=== PATIENT | male | born 1950 | race Caucasian/White ===

== ENCOUNTER 2018-05-07 15:45 | Inpatient (IN) | payer OTHER ==
--- NOTE | 2018-05-07 17:36 | HP ---
COWS - Scale Resting Pulse: 0= AL 80 or Below Sweatin= Chills/Flushing Restless Observation: 1= Difficult to Sit Still Pupil Size: 1= Pupils >than Normal Bone or Joint Aches: 2= Severe Diffuse Aches Runny Nose/ Eye Tearin= Runny Nose/Eyes GI Upset > 30mins: 2= Nausea/Diarrhea Tremor Observation: 1= Tremor [place], Not Seen Yawning Observation: 1= 1-2x During Session Anxiety or Irritability: 2=Irritable/Anxious Goose Flesh Skin: 0=Smooth Skin COWS Score: 13 CIWA Score - Admission Criteria OASAS Guidelines: Admission for Medically Managed Detox: Requires at least one of the followin. CIWA greater than 12 2. Seizures within the past 24 hours 3. Delirium tremens within the past 24 hours 4. Hallucinations within the past 24 hours 5. Acute intervention needed for co occurring medical disorder 6. Acute intervention needed for co occurring psychiatric disorder 7. Severe withdrawal that cannot be handled at a lower level of care (continued vomiting, continued diarrhea, abnormal vital signs) requiring intravenous medication and/or fluids 8. Admission ROS [facility] Chief Complaint: Withdrawal symptoms Allergies/Adverse Reactions: Allergies Allergy/AdvReac Type Severity Reaction Status Date / Time No Known Allergies Allergy Verified 05/07/18 17:31 History of Present Illness: 67 y.o. man is here seeking detox services for Vicodin dependence. He reports he has been prescribed Vicodin intermittently for the last 18 year. He reports he started abusing his medication and taking it more frequently then prescribed. He was last prescribed 90 tablets of Vicodin on 04/17/2018 and reports he has no more. Pt. provided a letter from his pain management doctor stating the client's pain will be managed with non-opioids upon his completion of detox. Exam Limitations: No Limitations - Ebola screening Have you traveled outside of the country in the last 21 days: No Have you had contact with anyone from an Ebola affected area: No Do you have a fever: No - Review of Systems Constitutional: Chills, Diaphoresis, Night Sweats EENT: reports: Nose Congestion Respiratory: reports: No Symptoms reported Cardiac: reports: Lightheadedness GI: reports: Poor Appetite, Abdominal cramping : reports: No Symptoms Reported Musculoskeletal: reports: Back Pain, Joint Pain Integumentary: reports: No Symptoms Reported Neuro: reports: Headache Endocrine: reports: No Symptoms Reported Hematology: reports: No Symptoms Reported Psychiatric: reports: Orientated x3, Anxious, Depressed Other Systems: Reviewed and Negative Patient History - Patient Medical History Hx Anemia: No Hx Asthma: No Hx Chronic Obstructive Pulmonary Disease (COPD): No Hx Cancer: No Hx Cardiac Disorders: Yes (Elevated triglycerides ) Hx Congestive Heart Failure: No Hx Hypertension: Yes Hx Hypercholesterolemia: No Hx Pacemaker: No HX Cerebrovascular Accident: No Hx Seizures: No Hx Dementia: No Hx Diabetes: No Hx Gastrointestinal Disorders: Yes (GERD ) Hx Liver Disease: No Hx Genitourinary Disorders: No Hx Sexually Transmitted Disorders: No Hx Renal Disease (ESRD): No Hx Thyroid Disease: No Hx Human Immunodeficiency Virus (HIV): No Hx Hepatitis C: No Hx Depression: Yes Hx Suicide Attempt: No Hx Bipolar Disorder: No Hx Schizophrenia: No - Patient Surgical History Past Surgical History: Yes Hx Cardiac Surgery: Yes ( CARDIAC STENTS 2002, CABG 2012) Other Surgical History: PARATHYROID REMOVED 2003 Anesthesia Reaction: No - PPD History Previous Implant?: No Documented Results: Negative w/o proof PPD to be Administered?: Yes - Reproductive History Patient is a Female of Child Bearing Age (11 -55 yrs old): No - Smoking Cessation Smoking history: Former smoker Have you smoked in the past 12 months: No Initiated information on smoking cessation: No - Substance & Tx. History Hx Alcohol Use: No Hx Substance Use: Yes Substance Use Type: Opiates Hx Substance Use Treatment: No - Substances Abused VICODIN Route: Oral Frequency: Daily Amount used: 5 TABLETS OF 5/325MG Age of first use: 30 Date of Last Use: 05/07/18 Family Disease History - Family Disease History Family Disease History: Diabetes: Brother, Heart Disease: Grandparent () , Respiratory: Mother Admission Physical Exam BHS - Vital Signs Vital Signs: Last Vital Signs Temp Pulse Resp BP Pulse Ox 97.7 F 73 18 145/81 05/07/18 18:17 05/07/18 18:17 05/07/18 18:17 05/07/18 18:17 - Physical General Appearance: Yes: Sweating, Anxious HEENTM: Yes: Hearing grossly Normal, Normocephalic, Normal Voice Respiratory: Yes: Chest Non-Tender, Lungs Clear, Normal Breath Sounds Neck: Yes: No masses,lesions,Nodules Breast: Yes: Breast Exam Deferred Cardiology: Yes: Regular Rhythm, Regular Rate Abdominal: Yes: Normal Bowel Sounds, Non Tender Genitourinary: Yes: Hesitency Back: Yes: Normal Inspection Musculoskeletal: Yes: Back pain Extremities: Yes: Normal Capillary Refill, Normal Inspection, Normal Range of Motion Neurological: Yes: Fully Oriented, Alert, Normal Mood/Affect, Normal Response Integumentary: Yes: Normal Color Lymphatic: Yes: Within Normal Limits - Diagnostic (1) Opioid dependence with withdrawal Current Visit: Yes Status: Chronic (2) BPH (benign prostatic hyperplasia) Current Visit: Yes Status: Chronic (3) Hypertension Current Visit: Yes Status: Chronic (4) Herniated intervertebral disc Current Visit: Yes Status: Chronic (5) Cervical stenosis of spine Current Visit: Yes Status: Chronic (6) History of kidney stones Current Visit: Yes Status: Chronic (7) GERD (gastroesophageal reflux disease) Current Visit: Yes Status: Chronic (8) History of heart artery stent Current Visit: Yes Status: Chronic Cleared for Admission S - Detox or Rehab [facility] Level of Care: Medically Managed Detox Regimen/Protocol: Methadone
[2018-05-07] MEDS ORDERED: P-EPHED 60MG/TRIPROLIDI 2.5MG TABLET PO PRN (17:50)
[2018-05-07] MEDS ORDERED: guaiFENesin/D-METHORPHAN HB 10 ML UNIT-DOSE CUPS PO PRN (17:50)
[2018-05-07] MEDS ORDERED: MENTHOL/PHENOL 1 EACH UD MM PRN (17:50)
[2018-05-07] MEDS ORDERED: diazePAM 5 MG TABLET PO ONE (17:50)
[2018-05-07] MEDS ORDERED: MAGNESIUM CITRATE 300 ML BOTTLE PO PRN (17:50)
[2018-05-07] MEDS ORDERED: diazePAM 5 MG TABLET PO PRN ×2 (17:50→20:06)
[2018-05-07] MEDS ORDERED: METHADONE HCL 10 MG TABLET (FOR DETOX USE ONLY) PO ONE ×6 (17:50→23:00)
[2018-05-07] MEDS ORDERED: hydrOXYzine PAMOATE 50 MG CAPSULE (FP) PO PRN (17:50)
[2018-05-07] MEDS ORDERED: MAGNESIUM HYDROX 2400MG/30ML ORAL SUSPENSION 30 ML CUP PO PRN (17:50)
[2018-05-07] MEDS ORDERED: ACETAMINOPHEN 325 MG TABLET (FP) PO PRN (17:50)
[2018-05-07] MEDS ORDERED: LOPERAMIDE HCL 2 MG CAPSULE PO PRN (17:50)
[2018-05-07 18:19] VITALS: BMI 27.4
[2018-05-07] MEDS: diazePAM 5 MG TABLET PO PRN (22:33)
[2018-05-07] MEDS: traZODone HCL 50 MG TABLET (FP) PO SCH (22:34)
[2018-05-07] MEDS: THIAMINE HCL 100 MG TABLET (FP) PO SCH (22:37)
[2018-05-07] MEDS: MELATONIN 5 MG TABLETS PO PRN (22:37)
[2018-05-08] MEDS: diazePAM 5 MG TABLET PO SCH ×2 (00:28→00:29)
[2018-05-08] MEDS ORDERED: MAGNESIUM OXIDE 400 MG TABLET (FP) PO PRN (09:33)
[2018-05-08] MEDS: IBUPROFEN 400 MG TABLET (FP) PO PRN (09:47)
[2018-05-08] MEDS ORDERED: DOXAZOSIN MESYLATE 4 MG TABLET PO SCH (10:00)
[2018-05-08] MEDS ORDERED: METOPROLOL TARTRATE 25 MG TABLET (FP) PO SCH (10:00)
[2018-05-08] MEDS ORDERED: METHADONE HCL 10 MG TABLET (FOR DETOX USE ONLY) PO ONE ×2 (10:00)
[2018-05-08] MEDS ORDERED: METHADONE HCL 10 MG TABLET (FOR DETOX USE ONLY) PO SCH (10:00)
--- NOTE | 2018-05-08 10:17 | CONSULT ---
[facility] Psychiatric Consult - Data Date of interview: 05/08/18 Admission source: [facility] Identifying data: This is the first admission to [address] [place] [address] for this 67 yo causian father os grown son,resides with family,supported by [employer]. Substance Abuse History: Patient started Vycodin 18 years ago after being dx with Kidney Stone prescribed by printing table hand,after a few years he started abusing ,currently takes 5 pills daily. Psychiatric History: Patient reports depressed mood ,anxiety since 2011 provoked by streesfull situation with finance,abusing pain killers.He started to see a psychiatrsit at [facility] in [place].He was placed on Trazodone and Clonopin.He sses his psychiatrist on a monthly basis. Physical/Sexual Abuse/Trauma History: denies Mental Status Exam - Mental Status Exam Alert and Oriented to: Time, Place, Person Cognitive Function: Grossly Intact Patient Appearance: Well Groomed Mood: Sad Affect: Labile Patient Behavior: Cooperative Speech Pattern: Clear Voice Loudness: Normal Thought Process: Goal Oriented Thought Disorder: Not Present Hallucinations: Denies Suicidal Ideation: Denies Homicidal Ideation: Denies Insight/Judgement: Fair Sleep: Difficulty falling asleep Appetite: Good Muscle strength/Tone: Normal Gait/Station: Normal Psychiatric Findings - Problem List ([place] 1, 2,3) (1) BPH (benign prostatic hyperplasia) Current Visit: Yes Status: Chronic (2) Cervical stenosis of spine Current Visit: Yes Status: Chronic (3) GERD (gastroesophageal reflux disease) Current Visit: Yes Status: Chronic (4) Herniated intervertebral disc Current Visit: Yes Status: Chronic (5) History of heart artery stent Current Visit: Yes Status: Chronic (6) History of kidney stones Current Visit: Yes Status: Chronic (7) Hypertension Current Visit: Yes Status: Chronic
[2018-05-08] MEDS: PRENATAL VITAMINS W/ FOLIC ACID TABLET (FP) PO SCH (10:25)
[2018-05-08] MEDS: PSYLLIUM 5.85 GM PACKET PO SCH ×2 (10:25→22:26)
[2018-05-08] MEDS: METOPROLOL TARTRATE 25 MG TABLET (FP) PO SCH ×2 (10:25→22:25)
[2018-05-08 10:32] LABS: ALBUMIN 3.7 g/dl (3.4-5.0); ALK PHOS 54 U/L (45-117); ANION GAP 7 MMOL/L (8-16); BILIRUBIN,TOTAL 0.7 mg/dL (0.2-1); BLOOD UREA NITROGEN 19 mg/dL (7-18); CALCIUM 8.8 mg/dL (8.5-10.1); CHLORIDE 109 mmol/L (98-107); CO2 28 mmol/L (21-32); CREATININE 1.2 mg/dL (0.55-1.3); GLUCOSE,RANDOM 92 mg/dL (74-106); POTASSIUM 4.5 mmol/L (3.5-5.1); SGOT/AST 17 U/L (15-37); SGPT/ALT 27 U/L (13-61); SODIUM 144 mmol/L (136-145); TOT PROT 6.5 g/dl (6.4-8.2)
[2018-05-08 10:41] LABS: HEMATOCRIT 41.2 % (35.4-49); HEMOGLOBIN 14.1 GM/dL (11.7-16.9); MCH 31.7 pg (25.7-33.7); MCHC 34.3 g/dl (32.0-35.9); MEAN CELL VOLUME 92.4 fl (80-96); MEAN PLT VOLUME 8.2 fl (7.5-11.1); PLATELET COUNT 164 K/MM3 (134-434); RBC 4.46 M/mm3 (4.00-5.60); RDW 12.5 % (11.9-15.9); WHITE BLOOD COUNT 5.7 K/mm3 (4.0-10.0)
[2018-05-08] MEDS: SODIUM CHLORIDE NASAL SPRAY 44 ML BOTTLE NS PRN ×2 (11:31→18:53)
--- NOTE | 2018-05-08 11:47 | PN ---
BHS COWS - Scale Resting Pulse: 2= DC 101-120 Sweatin=Flushed/Facial Moisture Restless Observation: 1= Difficult to Sit Still Pupil Size: 0= Normal to Room Light Bone or Joint Aches: 2= Severe Diffuse Aches Runny Nose/ Eye Tearin= Nasal Congestion GI Upset > 30mins: 1= Stomach Cramp Tremor Observation of Outstretched Hands: 2= Slight Tremor Visible Yawning Observation: 0= None Anxiety or Irritability: 2=Irritable/Anxious Goose Flesh Skin: 3=Piloerection COWS Score: 16 BHS Progress Note (SOAP) Subjective: interrupted sleep agitation sweats interrupted sleep chronic constipation body aches muscle cramps at times Objective: 05/08/18 11:45 Vital Signs Temperature 97.9 F 05/08/18 09:17 Pulse Rate 72 05/08/18 09:17 Respiratory Rate 18 05/08/18 09:17 Blood Pressure 179/99 H 05/08/18 09:17 O2 Sat by Pulse Oximetry (%) Laboratory Tests 05/08/18 05/08/18 07:00 07:00 WBC 5.7 RBC 4.46 Hgb 14.1 Hct 41.2 MCV 92.4 MCH 31.7 MCHC 34.3 RDW 12.5 Plt Count 164 MPV 8.2 Sodium 144 Potassium 4.5 Chloride 109 H Carbon Dioxide 28 Anion Gap 7 L BUN 19 H Creatinine 1.2 Creat Clearance w eGFR > 60 Random Glucose 92 Calcium 8.8 Total Bilirubin 0.7 AST 17 ALT 27 Alkaline Phosphatase 54 Total Protein 6.5 Albumin 3.7 aaox3 ambulating no acute distress BP elevated medication adjustment ordered as per pt request Assessment: 05/08/18 11:46 withdrawal sx Plan: continue detox increase fluids BP medication BID ordered as per pt request metamucil fleets enema prn magnesium oxide motrin prn
--- NOTE | 2018-05-08 11:51 | EKG ---
Test Reason : Blood Pressure : / mmHG Vent. Rate : 062 BPM Atrial Rate : 062 BPM P-R Int : 146 ms QRS Dur : 094 ms QT Int : 402 ms P-R-T Axes : 034 -20 050 degrees QTc Int : 408 ms NORMAL SINUS RHYTHM NORMAL ECG NO PREVIOUS ECGS AVAILABLE Confirmed by ROSALEE JOAQUIN, KATHERINE ([id number]) on 05/08/2018 11:50:45 AM Referred By: Confirmed By:KATHERINE TURK MD
[2018-05-08] MEDS: DOXAZOSIN MESYLATE 4 MG TABLET PO SCH ×2 (11:56→22:26)
[2018-05-08] MEDS: THIAMINE HCL 100 MG TABLET (FP) PO SCH (22:24)
[2018-05-08] MEDS: traZODone HCL 50 MG TABLET (FP) PO SCH (22:25)
[2018-05-08] MEDS: MAG HYDROX/AL HYDROX/SIMETH 30 ML UNIT-DOSE CUP PO PRN (22:27)
[2018-05-08] MEDS: MELATONIN 5 MG TABLETS PO PRN (22:27)
[2018-05-08] MEDS: diazePAM 5 MG TABLET PO PRN (22:28)
[2018-05-09] MEDS: diazePAM 5 MG TABLET PO PRN ×2 (06:12→23:26)
[2018-05-09] MEDS ORDERED: METHADONE HCL 5 MG TABLET (FOR DETOX USE ONLY) PO SCH (10:00)
[2018-05-09] MEDS ORDERED: METHADONE HCL 5 MG TABLET (FOR DETOX USE ONLY) PO ONE ×2 (10:00)
[2018-05-09] MEDS ORDERED: diazePAM 5 MG TABLET PO SCH (10:00)
[2018-05-09] MEDS: PRENATAL VITAMINS W/ FOLIC ACID TABLET (FP) PO SCH (10:13)
[2018-05-09] MEDS: METOPROLOL TARTRATE 25 MG TABLET (FP) PO SCH ×2 (10:14→23:31)
[2018-05-09] MEDS: DOXAZOSIN MESYLATE 4 MG TABLET PO SCH ×2 (10:14→23:30)
[2018-05-09] MEDS: PSYLLIUM 5.85 GM PACKET PO SCH (10:18)
[2018-05-09] MEDS: SODIUM CHLORIDE NASAL SPRAY 44 ML BOTTLE NS PRN (10:58)
--- NOTE | 2018-05-09 11:32 | PN ---
BHS COWS - Scale Resting Pulse: 0= ID 80 or Below Sweatin= Chills/Flushing Restless Observation: 1= Difficult to Sit Still Pupil Size: 0= Normal to Room Light Bone or Joint Aches: 1= Mild Discomfort Runny Nose/ Eye Tearin= Nasal Congestion GI Upset > 30mins: 1= Stomach Cramp Tremor Observation of Outstretched Hands: 1= Tremor [place], Not Seen Yawning Observation: 0= None Anxiety or Irritability: 1=Feels Anxious/Irritable Goose Flesh Skin: 0=Smooth Skin COWS Score: 7 BHS Progress Note (SOAP) Subjective: Mild throat discomfort Objective: 05/09/18 11:31 Vital Signs - 8 hr 05/09/18 05/09/18 05/09/18 06:00 07:15 09:41 Temperature 98.2 F 98.9 F Pulse Rate 62 64 65 Respiratory 16 18 19 Rate Blood Pressure 170/87 122/57 L 156/85 Laboratory Last Values WBC 5.7 K/mm3 (4.0-10.0) 05/08/18 07:00 RBC 4.46 M/mm3 (4.00-5.60) 05/08/18 07:00 Hgb 14.1 GM/dL (11.7-16.9) 05/08/18 07:00 Hct 41.2 % (35.4-49) 05/08/18 07:00 MCV 92.4 fl (80-96) 05/08/18 07:00 MCH 31.7 pg (25.7-33.7) 05/08/18 07:00 MCHC 34.3 g/dl (32.0-35.9) 05/08/18 07:00 RDW 12.5 % (11.9-15.9) 05/08/18 07:00 Plt Count 164 K/MM3 (134-434) 05/08/18 07:00 MPV 8.2 fl (7.5-11.1) 05/08/18 07:00 Sodium 144 mmol/L (136-145) 05/08/18 07:00 Potassium 4.5 mmol/L (3.5-5.1) 05/08/18 07:00 Chloride 109 mmol/L (98-107) H 05/08/18 07:00 Carbon Dioxide 28 mmol/L (21-32) 05/08/18 07:00 Anion Gap 7 MMOL/L (8-16) L 05/08/18 07:00 BUN 19 mg/dL (7-18) H 05/08/18 07:00 Creatinine 1.2 mg/dL (0.55-1.3) 05/08/18 07:00 Creat Clearance w eGFR > 60 (>60) 05/08/18 07:00 Random Glucose 92 mg/dL (74-106) 05/08/18 07:00 Calcium 8.8 mg/dL (8.5-10.1) 05/08/18 07:00 Total Bilirubin 0.7 mg/dL (0.2-1) 05/08/18 07:00 AST 17 U/L (15-37) 05/08/18 07:00 ALT 27 U/L (13-61) 05/08/18 07:00 Alkaline Phosphatase 54 U/L (45-117) 05/08/18 07:00 Total Protein 6.5 g/dl (6.4-8.2) 05/08/18 07:00 Albumin 3.7 g/dl (3.4-5.0) 05/08/18 07:00 RPR Titer Nonreactive (NONREACTIVE) 05/08/18 07:00 Labs noted-No panic values Assessment: 05/09/18 11:32 Withdrawal sx Plan: Continue detox
[2018-05-09] MEDS: IBUPROFEN 400 MG TABLET (FP) PO PRN (12:18)
[2018-05-09] MEDS: MAG HYDROX/AL HYDROX/SIMETH 30 ML UNIT-DOSE CUP PO PRN ×2 (14:58→23:30)
[2018-05-09] MEDS: traZODone HCL 50 MG TABLET (FP) PO SCH (23:25)
[2018-05-09] MEDS: SODIUM PHOSPHATE/NA BIPHOS 133 ML ENEMA PR PRN (23:30)
[2018-05-09] MEDS: THIAMINE HCL 100 MG TABLET (FP) PO SCH (23:32)
[2018-05-09] MEDS: MELATONIN 5 MG TABLETS PO PRN (23:34)
[2018-05-10] MEDS: PSYLLIUM 5.85 GM PACKET PO SCH ×3 (00:28→22:34)
[2018-05-10] MEDS: SODIUM CHLORIDE NASAL SPRAY 44 ML BOTTLE NS PRN (07:28)
[2018-05-10] MEDS ORDERED: METHADONE HCL 5 MG TABLET (FOR DETOX USE ONLY) PO ONE ×2 (10:00)
[2018-05-10] MEDS: METOPROLOL TARTRATE 25 MG TABLET (FP) PO SCH ×2 (10:34→22:31)
[2018-05-10] MEDS: PRENATAL VITAMINS W/ FOLIC ACID TABLET (FP) PO SCH (10:34)
[2018-05-10] MEDS: DOXAZOSIN MESYLATE 4 MG TABLET PO SCH ×2 (10:34→22:32)
--- NOTE | 2018-05-10 14:12 | PN ---
BHS Progress Note (SOAP) Subjective: Headache, pain scale 8-9/10 (stated he always have headache from withdrawal but relieved with motrin), interrupted sleep, occasional itchy skin. Patient stated he takes clonazepam 1mg PO daily at home (usually takes 0.5mg bid at home) Rx to him since 2012 and that he has been taking valium 10mg PO qhs here for sleep and doesn't need it during the daytime because he feels fine. Patient stated that he is afraid that he will if he stopped taking the valium as it is scheduled to end tonight and that he knows that he cannot abruptly stopped taking benzodiazepine. Care Support Representative will continue prn valium at 5mg PO qhs as patient not sure if he will continue his clonazepam at home. Care Support Representative encouraged patient to quit taking clonazepam as he shouldn't have been on it for so long and it's addictive. Objective: 05/10/18 14:11 Last Vital Signs Temp Pulse Resp BP Pulse Ox 98.2 F 68 18 147/90 05/10/18 10:09 05/10/18 10:09 05/10/18 10:09 05/10/18 10:09 HTN noted: 147/90 (h/o htn, on med) Laboratory Tests 05/08/18 05/08/18 05/08/18 07:00 07:00 07:00 WBC 5.7 RBC 4.46 Hgb 14.1 Hct 41.2 MCV 92.4 MCH 31.7 MCHC 34.3 RDW 12.5 Plt Count 164 MPV 8.2 Sodium 144 Potassium 4.5 Chloride 109 H Carbon Dioxide 28 Anion Gap 7 L BUN 19 H Creatinine 1.2 Creat Clearance w eGFR > 60 Random Glucose 92 Calcium 8.8 Total Bilirubin 0.7 AST 17 ALT 27 Alkaline Phosphatase 54 Total Protein 6.5 Albumin 3.7 RPR Titer Nonreactive Labs reviewed Assessment: 05/10/18 14:25 Withdrawal symptoms Plan: Continue detox Encouraged PO water intake Decrease valium to 5mg PO qhs prn to prevent withdrawal symptoms
[2018-05-10] MEDS ORDERED: diazePAM 5 MG TABLET PO PRN ×2 (14:14→14:15)
[2018-05-10] MEDS: MAG HYDROX/AL HYDROX/SIMETH 30 ML UNIT-DOSE CUP PO PRN ×2 (15:00→22:32)
[2018-05-10] MEDS: traZODone HCL 50 MG TABLET (FP) PO SCH (22:30)
[2018-05-10] MEDS: THIAMINE HCL 100 MG TABLET (FP) PO SCH (22:30)
[2018-05-11] MEDS ORDERED: METHADONE HCL 10 MG TABLET (FOR DETOX USE ONLY) PO SCH (10:00)
[2018-05-11] MEDS ORDERED: diazePAM 5 MG TABLET PO SCH (10:00)
[2018-05-11] MEDS ORDERED: METHADONE HCL 10 MG TABLET (FOR DETOX USE ONLY) PO ONE ×2 (10:00)
[2018-05-11] MEDS: PRENATAL VITAMINS W/ FOLIC ACID TABLET (FP) PO SCH (10:39)
[2018-05-11] MEDS: PSYLLIUM 5.85 GM PACKET PO SCH ×2 (10:41→22:11)
[2018-05-11] MEDS: DOXAZOSIN MESYLATE 4 MG TABLET PO SCH ×2 (10:41→22:12)
[2018-05-11] MEDS: METOPROLOL TARTRATE 25 MG TABLET (FP) PO SCH ×2 (10:41→22:11)
[2018-05-11] MEDS: SODIUM PHOSPHATE/NA BIPHOS 133 ML ENEMA PR PRN (10:56)
[2018-05-11] MEDS: IBUPROFEN 400 MG TABLET (FP) PO PRN (12:13)
--- NOTE | 2018-05-11 13:30 | PN ---
BHS Progress Note (SOAP) Subjective: Body Aches, Interrupted Sleep, Anxious, Constipation. Objective: PATIENT A & O X 3, OBSERVED AMBULATING ON UNIT. IN NO ACUTE DISTRESS. 05/11/18 13:18 Vital Signs Temperature 98.2 F 05/11/18 09:23 Pulse Rate 64 05/11/18 09:23 Respiratory Rate 18 05/11/18 09:23 Blood Pressure 161/85 05/11/18 09:23 O2 Sat by Pulse Oximetry (%) Laboratory Tests 05/08/18 05/08/18 05/08/18 07:00 07:00 07:00 WBC 5.7 RBC 4.46 Hgb 14.1 Hct 41.2 MCV 92.4 MCH 31.7 MCHC 34.3 RDW 12.5 Plt Count 164 MPV 8.2 Sodium 144 Potassium 4.5 Chloride 109 H Carbon Dioxide 28 Anion Gap 7 L BUN 19 H Creatinine 1.2 Creat Clearance w eGFR > 60 Random Glucose 92 Calcium 8.8 Total Bilirubin 0.7 AST 17 ALT 27 Alkaline Phosphatase 54 Total Protein 6.5 Albumin 3.7 RPR Titer Nonreactive LABS NOTED. Assessment: 05/11/18 13:18 WITHDRAWAL SYMPTOMS. Plan: CONTINUE DETOX. INCREASE DAILY PO FLUID INTAKE. PATIENT CURRENTLY PRESCRIBED METAMUCIL FOR CONSTIPATION, ADVISED TO CONSIDER MOM IF INSUFFICIENT EFFECT FROM METAMUCIL. PATIENT REPORTS HISTORY OF BEING PRESCRIBED KLONOPIN, RECENTLY CHANGED TO LORAZEPAM ON OUTPATIENT BASIS. ACCORDING TO PATIENT ,THESE MEDICATIONS WERE PRESCRIBED TO HIM FOR INSOMNIA AND FOR ANXIETY. PATIENT REPORTS THAT HE COMPLETED LAST SUPPLY OF LORAZEPAM ON DAY IN WHICH HE WAS ADMITTED FOR DETOX ( FOR OPIATES). PATIENT DOES ADMIT THAT HE WAS TAKING THE LORAZEPAM INAPPROPRIATELY AND AT HIGHER AMOUNTS THAN HE WAS PRESCRIBED BY OUTSIDE MEDICAL PROVIDER (DR. Rufina BROWER, '[facility], [place]) PRIOR TO ADMISSION TO DETOX. NEITHER LORAZEPAM NOR KLONOPIN WERE LISTED ON PATIENT'S HOME MEDICATION LIST; HOWEVER, REVIEW OF EXTERNAL ( OUTPATIENT) MEDICATIONS CONFIRMS RECENT PRESCRIPTION FOR LORAZEPAM. PATIENT EXPRESSES CONCERN OVER "WITHDRAWAL" OR "SEIZURE" IF HE IS NOT ABLE TO TAKE ATIVAN TODAY. PRN VALIUM ORDERED FOR HS TO ASSIST WITH SLEEPING BY MEDICAL PROVIDER YESTERDAY. WILL MAINTAIN FOR THIS EVENING AT HS. PATIENT APPEARS WELL AND REPORTS THAT HE FEELS WELL OVERALL AT THIS TIME. PATIENT SCHEDULED FOR D/C TOMORROW. PATIENT ADVISED TO FOLLOW-UP WITH DR. BROWER SOON POSSIBLE AFTER DISCHARGE FROM DETOX UNIT FOR FURTHER EVALUATION OF HISTORY OF PRESCRIPTION OF LORAZEPAM. PATIENT VERBALIZED UNDERSTANDING OF RECOMMENDATION.
[2018-05-11] MEDS: MAG HYDROX/AL HYDROX/SIMETH 30 ML UNIT-DOSE CUP PO PRN ×2 (15:10→22:17)
[2018-05-11] MEDS: SODIUM CHLORIDE NASAL SPRAY 44 ML BOTTLE NS PRN (18:13)
[2018-05-11] MEDS: traZODone HCL 50 MG TABLET (FP) PO SCH (22:12)
[2018-05-11] MEDS: THIAMINE HCL 100 MG TABLET (FP) PO SCH (22:13)
[2018-05-11] MEDS: MELATONIN 5 MG TABLETS PO PRN (22:17)
[2018-05-12] MEDS ORDERED: METHADONE HCL 5 MG TABLET (FOR DETOX USE ONLY) PO SCH (06:00)
[2018-05-12] MEDS ORDERED: METHADONE HCL 5 MG TABLET (FOR DETOX USE ONLY) PO ONE ×2 (06:00)
[2018-05-12 09:07] VITALS: BP 139/74; PULSE 67; TEMP 97.3
[2018-05-12] MEDS: METOPROLOL TARTRATE 25 MG TABLET (FP) PO SCH (09:44)
[2018-05-12] MEDS: PSYLLIUM 5.85 GM PACKET PO SCH (09:44)
[2018-05-12] MEDS: PRENATAL VITAMINS W/ FOLIC ACID TABLET (FP) PO SCH (09:44)
[2018-05-12] MEDS: DOXAZOSIN MESYLATE 4 MG TABLET PO SCH (09:46)
--- NOTE | 2018-05-12 12:52 | DS ---
[facility] Detox Discharge Summary Admission Date: 05/07/18 Discharge Date: 05/12/18 - History Present History: Opioid Dependence, Sedative Dependence Additional Comments: PATIENT ELECTING TO GO HOME AND ATTEND LOCAL 12-STEP / NA / AA OUTPATIENT SUPPORT GROUPS PROGRAMS. PATIENT ADVISED TO FOLLOW-UP WITH MEDICAL PROVIDER DR. Rufina BROWER ([place], [place]) SOON POSSIBLE AFTER DISCHARGE FROM DETOX UNIT FOR HISTORY OF CLONAZEPAM / LORAZEPAM PRESCRIPTION ON OUTPATIENT BASIS PRIOR TO ADMISSION TO DETOX UNIT. PATIENT ALSO ADVISED TO GO IMMEDIATELY TO NEAREST ER SHOULD ANY FURTHER INTOLERABLE WITHDRAWAL SYMPTOMS DEVELOP AT ANY TIME AFTER DISCHARGE FROM DETOX UNIT. PATIENT VERBALIZED UNDERSTANDING OF ALL INFORMATION / RECOMMENDATIONS PRESENTED TO HIM PRIOR TO DEPARTURE FROM DETOX UNIT. PATIENT DECLINED OFFER OF MEDICATION PRESCRIPTION FOR HOME MEDICATION (ANTI- HYPERTENSIVE MEDICATION) AT TIME OF DISCHARGE FROM DETOX, NOTING THAT HE CURRENTLY HAS ADEQUATE SUPPLIES OF ALL PRESCRIBED ANTI-HYPERTENSIVE MEDICATIONS AT HOME. PATIENT WAS DISCHARGED FROM DETOX UNIT IN STABLE MEDICAL CONDITION. Pertinent Past History: B.P.H., History of Cardiac Artery Stent Placement, History of C.A.B.G., Hypertriglyceridemia, HTN, History of Stenosis of Cervical Spine, History of Herniated Intervertebral Disc, C.A.D., History of Kidney Stones, [place].E.R.D. - Physical Exam Results Vital Signs: Vital Signs Temperature 97.3 F L 05/12/18 09:07 Pulse Rate 67 05/12/18 09:07 Respiratory Rate 18 05/12/18 09:07 Blood Pressure 139/74 05/12/18 09:07 O2 Sat by Pulse Oximetry (%) Pertinent Admission Physical Exam Findings: WITHDRAWAL SYMPTOMS. Laboratory Tests 05/08/18 05/08/18 05/08/18 07:00 07:00 07:00 WBC 5.7 RBC 4.46 Hgb 14.1 Hct 41.2 MCV 92.4 MCH 31.7 MCHC 34.3 RDW 12.5 Plt Count 164 MPV 8.2 Sodium 144 Potassium 4.5 Chloride 109 H Carbon Dioxide 28 Anion Gap 7 L BUN 19 H Creatinine 1.2 Creat Clearance w eGFR > 60 Random Glucose 92 Calcium 8.8 Total Bilirubin 0.7 AST 17 ALT 27 Alkaline Phosphatase 54 Total Protein 6.5 Albumin 3.7 RPR Titer Nonreactive LABS NOTED. - Treatment Hospital Course: Detox Protocol Followed, Detoxed Safely, Responded well, Discharged Condition Good Patient has Accepted a Rehab Referral to: PT ELECTING TO GO HOME & RETURN TO 12- STEP/AA/NA OUTPATIENT SUPPORT GROUPS. - Medication Discharge Medications: Ambulatory Orders Doxazosin Mesylate [Cardura -] 4 mg PO DAILY 05/07/18 Metoprolol Tartrate 25 mg PO DAILY 05/07/18 traZODone HCL [Trazodone HCl] 25 mg PO HS 05/07/18 - Diagnosis (1) Opioid dependence with withdrawal Status: Acute (2) BPH (benign prostatic hyperplasia) Status: Chronic Qualifiers: Lower urinary tract symptom presence: unspecified whether lower urinary tract symptoms present Qualified Code(s): N40.0 - Benign prostatic hyperplasia without lower urinary tract symptoms (3) CAD (coronary artery disease) Status: Chronic Qualifiers: Coronary Disease-Associated Artery/Lesion type: unspecified vessel or lesion type [place] vs. transplanted heart: unspecified whether [place] or transplanted heart Associated angina: angina presence unspecified Qualified Code(s): I25.10 - Atherosclerotic heart disease of [place] coronary artery without angina pectoris (4) Cervical stenosis of spine Status: Chronic (5) Depression Status: Chronic Qualifiers: Depression Type: unspecified Qualified Code(s): F32.9 - Major depressive disorder, single episode, unspecified (6) GERD (gastroesophageal reflux disease) Status: Chronic Qualifiers: Esophagitis presence: without esophagitis Qualified Code(s): K21.9 - Gastro -esophageal reflux disease without esophagitis (7) Herniated intervertebral disc Status: Chronic Qualifiers: Spinal region: lumbosacral Qualified Code(s): M51.27 - Other intervertebral disc displacement, lumbosacral region (8) History of heart artery stent Status: Chronic (9) History of kidney stones Status: Chronic (10) Hypertension Status: Chronic Qualifiers: Hypertension type: essential hypertension Qualified Code(s): I10 - Essential (primary) hypertension (11) Substance induced mood disorder Status: Chronic - AMA Did Patient Leave Against Medical Advice: No
== END 2018-05-12 10:25 | disposition home or self-care (01) | DRG 897 ==
LOC: YASAS 15:45 → Y6N 20:27
PROVIDERS: ADMIT Neuromusculoskeletal Medicine & OMM; ATTEND Neuromusculoskeletal Medicine & OMM
PROC: HZ2ZZZZ Detoxification Services for Substance Abuse Treatment (ICD-10-PCS; principal; 2018-05-07)
DX: F11.23 Opioid dependence with withdrawal (principal); F32.9 Major depressive disorder, single episode, unspecified; F19.24 Other psychoactive substance dependence with psychoactive substance-induced mood disorder; I10 Essential (primary) hypertension; I25.10 Atherosclerotic heart disease of native coronary artery without angina pectoris; N40.0 Benign prostatic hyperplasia without lower urinary tract symptoms; K21.9 Gastro-esophageal reflux disease without esophagitis; M48.02 Spinal stenosis, cervical region; M51.27 Other intervertebral disc displacement, lumbosacral region; Z87.891 Personal history of nicotine dependence; Z95.5 Presence of coronary angioplasty implant and graft; Z87.442 Personal history of urinary calculi
CPT/HCPCS: 36415; 80053; 85027; 86593; 93005; 93010